=== PATIENT | female | born 1930 | race Caucasian/White ===

== ENCOUNTER 2017-01-06 13:20 | Emergency (ER) | payer MEDICARE ==
[2017-01-06] MEDS ORDERED: ADALAT CC60 M1 PO (13:56)
[2017-01-06] MEDS ORDERED: ZOLOFT50 M1 PO (13:56)
[2017-01-06] MEDS ORDERED: VITAMIN B122500 MCG PO (13:57)
[2017-01-06] MEDS ORDERED: TRIAMTERENE-HC1 EAC1 PO (13:57)
[2017-01-06] MEDS ORDERED: POTASSIUM CHLO10 ME2 PO (13:57)
[2017-01-06] MEDS ORDERED: COZAAR50 M1 PO (13:57)
[2017-01-06] MEDS ORDERED: OCUVITE SOFTGE1 EACH PO (13:58)
[2017-01-06] MEDS ORDERED: TYLENOL EXTRA500 M1 PO (13:58)
[2017-01-06] MEDS ORDERED: VITAMIN D32000 UNI2 PO (13:58)
[2017-01-06] MEDS ORDERED: XALATAN2.5 M1 EACH EYE (13:59)
== END 2017-01-06 14:16 ==
LOC: EDMED 13:20
DX: T18.128A Food in esophagus causing other injury, initial encounter (principal)